=== PATIENT | female | born 1980 | race Caucasian/White ===

== ENCOUNTER 2018-05-25 14:58 | Emergency (ER) | payer BC, MEDICAID ==
--- NOTE | 2018-05-25 16:10 | Emergency Department Record ---
History of Present Illness - General Chief Complaint: Wound, check Stated Complaint: SUTURES COMING UNDONE Time Seen by Provider: 05/25/18 15:33 Source: Patient Mode of arrival: Ambulatory Limitations: No limitations - History of Present Illness Initial Comments: The patient is here due to bleeding from one of her Lap sites. She had a Lap LUIS F yesterday by Dr. Larson and has been doing a lot at home and noticed bleeding from the L upper abdominal Lap site. There is no specific pain but just the bleeding. She denies any new AP or any nausea or vomiting. MD Complaint: Wound re-check Onset/Timin -: Minutes(s) Returns Today for: Other Symptoms Since Prior Visit: No new symptoms Associated Symptoms: Abdominal pain - Related Data Home Medications Medication Instructions Recorded Confirmed Last Taken Hydrocodone/Acetaminophen [[place] 1 each PO Q4HR PRN 05/25/18 05/25/18 05/25/18 14:30 5-325 Tablet] Ibuprofen 200 mg Tablet [Motrin 600 mg PO Q6H PRN 05/25/18 05/25/18 05/25/18 08: 30 200Mg] Allergies Allergy/AdvReac Type Severity Reaction Status Date / Time No Known Drug Intolerances Allergy Unknown PT UNSURE Verified 05/25/18 15:08 OF REACTION Travel Screening - Travel/Exposure Within Last 30 Days Have you traveled within the last 30 days?: Yes Location Detail:: [facility] - Travel Symptoms Symptom Screening: None Review of Systems Constitutional: Denies: Chills, Fever Eyes: Denies: Eye discharge ENT: Denies: Congestion Respiratory: Denies: Cough, Dyspnea Past Medical History - SOCIAL HISTORY Smoking Status: Never smoker Alcohol Use: Rare Drug Use: None - RESPIRATORY Hx Respiratory Disorders: No - CARDIOVASCULAR Hx Cardio Disorders: No Comment:: recovering from knee sx - NEURO Hx Neuro Disorders: Yes Hx Headaches: Yes (1x week) - GI Hx GI Disorders: No - Hx Genitourinary Disorders: No Comment:: irreg menses polycystic ovarian disease - ENDOCRINE Hx Endocrine Disorders: No - MUSCULOSKELETAL Hx Musculoskeletal Disorders: Yes Comment:: hx recent right knee sx doing pt still on crutches - PSYCH Hx Psych Problems: No - HEMATOLOGY/ONCOLOGY Hx Hematology/Oncology Disorders: No Family Medical History Any Significant Family History?: No Physical Exam - General General Appearance: Alert, Oriented x3, Cooperative, No acute distress - Head Head exam: Atraumatic, Normocephalic - Eye Eye exam: Normal appearance - GI/Abdominal GI/Abdominal exam: Soft, Tenderness (There is minimal tenderness around the multiple Lap sites but no erythema or active bleeding. The L upper Lap incision site does have the steri strips in place but is saturated with blood. There is no active bleeding or drainage. ). negative: Rebound, Rigid - Extremities Extremities exam: Normal inspection, Full ROM, Normal capillary refill. negative: Tenderness Course Vital Signs 05/25/18 15:11 Temperature 97.7 F Pulse Rate 74 Respiratory 18 Rate Blood Pressure 111/70 Pulse Ox 98 - Reevaluation(s) Reevaluation #1: I did discuss the case with Dr. Larson who did the surgery. Since the area is not actively bleeding she would like the area to be reinforced and the patient to F/U in the office as previously planned. 05/25/18 16:09 Disposition Disposition: Discharge Clinical Impression: Postop check Disposition: Home, Self-Care Condition: (2) Stable Instructions: Postoperative Bleeding (ED) Additional Instructions: Keep the bandage in place for 2 days and keep dry. Please follow up with Dr. Larson for any further problems. Return to the ER for any worsening bleeding, pain, or fever. Forms: Patient Portal Access Time of Disposition: 16:16 Quality - Quality Measures Quality Measures: N/A - Blood Pressure Screening View Details: Yes Does Patient Have Any of the Following: No Blood Pressure Classification: Normal BP Reading Systolic Measurement: 111 Diastolic Measurement: 70 Screening for High Blood Pressure: < Normal BP, F/U Not Required > [[id number]]
== END 2018-05-25 16:22 | disposition home or self-care (01) ==
LOC: ER 14:58
DX: L76.22 Postprocedural hemorrhage of skin and subcutaneous tissue following other procedure (principal); Z90.710 Acquired absence of both cervix and uterus; Y83.8 Other surgical procedures as the cause of abnormal reaction of the patient, or of later complication, without mention of misadventure at the time of the procedure
CPT/HCPCS: 99283